=== PATIENT | female | born 1985 ===

== ENCOUNTER 2018-06-07 09:03 | Emergency (ER) | payer SELFPAY ==
[~2018-06-07] VITALS: Ht 170.2 cm; Wt 81.8 kg
[2018-06-07 09:06] VITALS: BP 139/109
[2018-06-07] MEDS ORDERED: IBUP-1506 PO (09:17)
== END 2018-06-07 12:41 | disposition home or self-care (01) ==
LOC: EMS 09:05
DX: S93.602A Unspecified sprain of left foot, initial encounter (principal); R03.0 Elevated blood-pressure reading, without diagnosis of hypertension; F17.210 Nicotine dependence, cigarettes, uncomplicated; X50.1XXA Overexertion from prolonged static or awkward postures, initial encounter; Y93.89 Activity, other specified; Y92.89 Other specified places as the place of occurrence of the external cause; Y99.8 Other external cause status
CPT/HCPCS: 99284